=== PATIENT | female | born 2000 | race Caucasian/White ===

== ENCOUNTER 2023-02-08 16:00 | Emergency (ER) | payer BC ==
[2023-02-08] MEDS ORDERED: Lidocaine 1% 10 ML MDV INJECT ONE (16:41)
[2023-02-08] MEDS ORDERED: Bupivacaine 0.5% 10 ML SDV INJECT ONE (16:41)
== END 2023-02-08 18:30 | disposition home or self-care (01) ==
LOC: JD.ED 16:00
DX: S61.303A Unspecified open wound of left middle finger with damage to nail, initial encounter (principal); X50.0XXA Overexertion from strenuous movement or load, initial encounter
CPT/HCPCS: 64450; 99283; J3490